=== PATIENT | male | born 1990 | race Caucasian/White ===

== ENCOUNTER 2020-07-28 20:26 | Emergency (ER) | payer MEDICAID, SELFPAY ==
[2020-07-28 20:26] VITALS: BP 136/86; PULSE 102; RESP 18; TEMP 36.6; O2SAT 96; BMI 28.5
--- NOTE | 2020-07-28 21:48 | ED_ITS ---
HPI - Wound/Laceration General: Chief Complaint: Wound/Laceration Stated Complaint: R EYE INJURY Time Seen by Provider: 07/28/20 21:11 Source: patient Mode of arrival: ambulatory Limitations: no limitations History of Present Illness: HPI narrative: 29-year-old male patient presents to the emergency department with right eyelid laceration. He states was riding [address] [place], watching for his dog behind him, ran into a barbed wire fence cutting his right eye. He states did not wreck the 4 [place], he denies loss of consciousness head injury or neck pain. He denies change of vision or eye pain. His states tried to cleanse the wound with soap and water but bleeding continued. Onset (ago): hour(s) (1) Place: home Patient tetanus UTD: No Associated symptoms: Reports no associated symptoms; Denies chills, fever(s), nausea or vomiting Treatments prior to arrival: bandage Review of Systems General: Reports: 10 or more systems reviewed and unremarkable except in HPI and below Const: Denies: fever(s), chills or diaphoresis Eyes: Denies: blurry vision or eye redness ENMT: Denies: throat pain, dental pain or disequilibrium Card: Denies: chest pain, palpitations or irregular heart rhythm Resp: Denies: dyspnea, productive cough, non-productive cough or wheezing GI: Denies: abdominal pain, nausea or vomiting : Denies: dysuria Musc: Denies: neck pain, back pain, joint pain or joint warmth Skin/Breast: Reports: skin pain and skin tenderness; Denies: rash, pruritus, non-healing lesions or acne Neuro: Denies: headache(s), weakness in extremities or behavioral changes Psych: Denies: anxiety or depression Lupillo/Lymph: Denies: easy bruising Physical Exam Const: COMMON NORMALS: no acute distress, average body habitus, patient oriented x3, healthy appearing, alert and well nourished GENERAL APPEARANCE: cooperative, comfortable, well kempt, well developed and well hydrated NUTRITIONAL APPEARANCE: thin ORIENTATION/CONSCIOUSNESS: Yes awake, Yes oriented to person, Yes oriented to place and Yes oriented to time HENMT: COMMON NORMALS: normocephalic, atraumatic, EAC's normal, TM's normal bilaterally, Normal external nose present, Normal nasal mucous membranes and turbinates present, moist oral mucous membranes, oropharynx normal and dentition normal HEAD & SCALP: normal to inspection, normocephalic and atraumatic FACE & SINUS: normal facial exam, sinuses nontender and face symmetric FACE & SINUS IMAGES: 1. 1.5 cm linear laceration, no active bleeding, not through the eyelid 2. superficial abrasion lateral to the laceration NOSE: Normal external nose present and Normal nasal mucous membranes and turbinates present EXTERNAL AUDITORY CANAL: EAC's normal TYMPANIC MEMBRANE: TM's normal bilaterally MOUTH: Normal oral and palatal mucosa present and tongue normal Eye: COMMON NORMALS: Equal, round and reactive pupils present, EOMs intact bilaterally and conjunctivae normal GENERAL EYE: appearance normal, both eyes and all related structures and normal light reflex VISUAL ACUITY: Yes acuity normal VISUAL [place]: No peripheral vision loss ALIGNMENT: Yes alignment normal PERIORBITAL: periorbital findings normal EYELID: eyelid abnormality right upper eyelid (laceration) CONJUNCTIVA: Yes conjunctivae normal SCLERA: sclerae normal CORNEA: Yes corneas normal PUPIL: Yes Equal, round and reactive pupils present DIRECT OPHTHALMOSCOPY: Yes normal light reflex Neck/C-Spine: COMMON NORMALS: full ROM and no lymphadenopathy GENERAL: Yes normal visual inspection and Yes trachea midline CERVICAL SPINE: Yes cervical ROM normal Lymph: LYMPHATIC: no lymphadenopathy noted Chest: COMMONS NORMALS: normal inspection of the chest Resp: COMMON NORMALS: normal respiratory effort and clear to auscultation bilaterally AUSCULTATION: clear to auscultation bilaterally Cardio: COMMON NORMALS: regular rhythm, S1 normal heart sound present and S2 normal heart sound present RHYTHM: regular rhythm HEART SOUNDS: S1 normal heart sound present and S2 normal heart sound present GI: COMMON NORMALS: Soft to palpation and non-tender INSPECTION: Yes normal to inspection PALPATION: Yes Soft to palpation : COMMON NORMALS: Yes no CVA tenderness BLADDER/KIDNEY EXAM: Yes no CVA tenderness Back/Pelvis: COMMON NORMALS: no CVA tenderness and thoracic and lumbar spine normal to inspection Extremity: COMMON NORMALS: normal to inspection and capillary refill normal Neuro: COMMON NORMALS: patient oriented x3 and no focal motor deficits SENSORIUM/ORIENTATION: Yes alert, Yes oriented to person, Yes oriented to place and Yes oriented to time Psych: COMMON NORMALS: mental status grossly normal, Normal thought process present and cooperative APPEARANCE: Yes well kempt ACTIVITY/MOTOR BEHAVIOR: Yes appropriate eye contact THOUGHT PROCESS: Normal thought process present Skin: COMMON NORMALS: no rashes or lesions noted and turgor normal GENERAL SKIN EXAM: no rashes or lesions noted and turgor normal Procedures Laceration Laceration 1: Site: scalp (rt eyelid - upper) Side (If applicable): right Size (cm): 1.5 Description: linear Depth: simple, single layer Local Anesthetic: lidocaine 1% Amount of anesthesia used (mL): 4 Pre-repair: wound explored, irrigated extensively, deep structures intact and extensive debridement Skin layer closed with: nylon Size (cm): 6-0 Number of sutures: 3 Technique: simple, interrupted Subcutaneous layer closed with: other (skin adhesive) Course Vital Signs: Vital signs: Vital Signs Temperature 97.9 F 07/28/20 20:26 Pulse Rate 102 H 07/28/20 20:26 Respiratory Rate 18 07/28/20 20:26 Blood Pressure 136/86 07/28/20 20:26 Pulse Oximetry 96 07/28/20 20:26 Discharge Plan Discharge Patient Disposition: Home Clinical Impression: Abrasion Eyelid laceration Qualifiers: Encounter type: initial encounter Laterality: right Qualified Code(s): S01.111A - Laceration without foreign body of right eyelid and periocular area, initial encounter Condition: Stable Discharge Orders: Discharge ED (Routine); Ordered 07/28/20 Ordered By: Josie Mascorro Referrals: oDnita Rios DO [Primary Care Provider] - Discharge Diet: Usual diet Discharge Activity: Resume usual activity Patient Instructions: Diphtheria/Acellular Pertussis/Tetanus Booster Vaccine (Tdap) (Injection), Suture Care (ED), Laceration (ED), Opioid Safety, Suture Care - Skin Glue Activity Restrictions/Additional Instructions: instructional support services director will contact you with a follow-up appointment with Dr. Riley, ophthalmology for next week Do not submerge the sutures do not rub sutures or irritate the sutures May gently cleanse with warm water, may apply triple antibiotic ointment to the wound once daily Avoid rubbing the eye or wound is irritation for suture injury can occur Return to the emergency department if you develop difficulty with vision, eye pain or difficulty seeing out of the right eye Coding Level of Care Code ED Grated Cheese Maker for Son Fwd Exam Comprehensive
[2020-07-28] MEDS: tetanus-dipt-pertussis 0.5 mL SDV IM (22:29)
[2020-07-28] MEDS: eye irrigation 30 mL Btl EYE-RIGHT (22:30)
[2020-07-28] MEDS: lidocaine 1% INJ 20 mL INJECTION (22:30)
[2020-07-28] MEDS: fluorescein 1 mg Strip EYE-RIGHT (22:30)
--- NOTE | 2020-07-28 22:31 | PC.NURSE ---
unable to scan meds or pt due to system downtime.
--- NOTE | 2020-08-02 10:17 | DCPLANNER ---
Addendum entered by Giulia Vargas 08/30/20 12:08: Patient had a follow up appointment scheduled for 08.03.[address] Riley - patient did attend appointment. Original Note: financial aid manager had message to schedule a follow up appointment for patient with Dr. Riley for suture removal. financial aid manager called the office of Dr. Riley, spoke with Laurel, gave clinic patients information. A followup appointment was scheduled for Monday, August 03, 2020 at 11:00 with Andrew. financial aid manager called patient, spoke with life partner, gave her the appointment information.
== END 2020-07-28 22:32 | disposition home or self-care (01) ==
PROVIDERS: Emergency Provider Nurse Practitioner Family; PCP Family Medicine
DX: S01.111A Laceration without foreign body of right eyelid and periocular area, initial encounter (principal); S00.81XA Abrasion of other part of head, initial encounter; V86.55XA Driver of 3- or 4- wheeled all-terrain vehicle (ATV) injured in nontraffic accident, initial encounter; Z23 Encounter for immunization
CPT/HCPCS: 12011; 90471; 90715; 99283

== ENCOUNTER 2020-11-25 18:55 | Emergency (ER) | payer MEDICAID, SELFPAY ==
[2020-11-25 19:24] VITALS: BP 118/72; PULSE 73; RESP 18; TEMP 36.7; O2SAT 98; BMI 26.4
--- NOTE | 2020-11-25 19:36 | ED_ITS ---
HPI - Wound/Laceration General: Chief Complaint: Wound/Laceration Stated Complaint: Rt Hand Cut Time Seen by Provider: 11/25/20 19:35 History of Present Illness: HPI narrative: Patient is a 29-year-old male comes to the ED with a cut on right hand. Patient says cut occurred 2 days ago when he cut the dorsal aspect of right hand on a metal dryer door. They immediately rinsed the cut with water and then cleaned it out with hydrogen peroxide. They have been keeping it covered with a Band-Aid for the past couple days as well. Patient was concerned about it possibly being infected. Patient is not up-to-date on his tetanus. Associated symptoms: Denies chills, fever(s), nausea or vomiting Review of Systems Const: Denies: fever(s), chills or fatigue Eyes: Denies: change in vision or eye discomfort ENMT: Denies: throat pain, odynophagia, nasal discharge or nasal congestion Card: Denies: chest pain, palpitations, edema, swelling of feet/ankles, dyspnea on exertion or orthopnea Resp: Denies: dyspnea, productive cough or non-productive cough GI: Denies: abdominal pain, nausea, vomiting, diarrhea, constipation or hematochezia : Denies: flank pain, difficulty urinating, dysuria or hematuria Musc: Denies: neck pain, back pain or extremity swelling Skin/Breast: Reports: new lesions (cut on right hand); Denies: rash Neuro: Denies: headache(s), numbness in extremities or weakness in extremities Physical Exam Const: COMMON NORMALS: no acute distress, patient oriented x3 and alert GENERAL APPEARANCE: cooperative and comfortable HENMT: COMMON NORMALS: normocephalic HEAD & SCALP: normocephalic MOUTH: Normal oral and palatal mucosa present THROAT: posterior oropharynx normal and uvula midline Neck/C-Spine: COMMON NORMALS: supple GENERAL: Yes normal visual inspection Resp: COMMON NORMALS: normal respiratory effort, No retractions, No use of accessory muscles and clear to auscultation bilaterally AUSCULTATION: clear to auscultation bilaterally Cardio: COMMON NORMALS: regular rate, regular rhythm, S1 normal heart sound present, S2 normal heart sound present, No gallops present (Cardio), No clicks present (Cardio), No murmurs present (Cardio) and Peripheral pulses 2+ throughout RATE: regular rate RHYTHM: regular rhythm HEART SOUNDS: S1 normal heart sound present and S2 normal heart sound present PERIPHERAL PULSES: Peripheral pulses 2+ throughout GI: COMMON NORMALS: Normal to inspection, nondistended, normoactive bowel sounds present, Soft to palpation, non-tender and no masses PALPATION: Yes Soft to palpation : COMMON NORMALS: Yes no CVA tenderness BLADDER/KIDNEY EXAM: Yes no CVA tenderness Back/Pelvis: COMMON NORMALS: no CVA tenderness Extremity: COMMON NORMALS: normal to inspection NARRATIVE EXTREMITY EXAM: Right hand?patient has a superficial laceration to dorsal aspect of hand. No signs of infection noted. Sutures not needed to close up laceration. Neuro: COMMON NORMALS: patient oriented x3 and moves all extremities SENSORIUM/ORIENTATION: Yes alert Skin: GENERAL SKIN EXAM: dry skin Course Vital Signs: Vital signs: Vital Signs Temperature 98.1 F 11/25/20 19:24 Pulse Rate 78 11/25/20 19:58 Respiratory Rate 16 11/25/20 19:58 Blood Pressure 118/72 11/25/20 19:24 Pulse Oximetry 99 11/25/20 19:58 MDM - Wound/Laceration MDM Narrative: Medical decision making narrative: Patient had a cut on his right hand that did not need any sutures and appears to be healing well with no signs of infection. Patient was given an updated tetanus. Triple antibiotic ointment was placed along with bandage over cat. Patient was discharged and told to follow-up with PCP in 7 to 10 days for reevaluation. Patient understood and agree with plan. Discharge Plan Discharge Patient Disposition: Home Clinical Impression: Cut of right hand Qualifiers: Encounter type: initial encounter Qualified Code(s): S61.411A - Laceration without foreign body of right hand, initial encounter Condition: Stable Prescriptions: New cephalexin 500 mg capsule 500 mg PO Q6H 4 Days Qty: 16 RF: 0 bacitracin zinc-polymyxin B 500-10,000 unit/gram ointment 1 applic topical DAILY Qty: 14.2 RF: 0 Discharge Orders: Discharge ED (Routine); Ordered 11/25/20 Ordered By: Edwardo Zapata Referrals: Donita Rios DO [Primary Care Provider] - Discharge Diet: Regular Discharge Activity: Resume usual activity Patient Instructions: Laceration (ED) Activity Restrictions/Additional Instructions: Follow-up with medical provider as directed in 7 to 10 days for reevaluation. Take medications as prescribed. Clean cotton on hand daily with soap and water and then apply triple antibiotic ointment or bacitracin on cut and bandage to keep it covered daily. Return to the ER or your medical provider if condition worsens. Please read and understand discharge instructions. Thank you for choosing [facility] for your healthcare needs today. Please realize this is an emergency room and that we are providing you with a medical screening exam and this may not be complete and all inclusive of all the testing and or work up that you may need to determine your ailment or severity of your illness. It is very important that you follow up as instructed or that you return to the Emergency Department should you have concerns or if your condition changes or worsens in any way. Coding Level of Care Code ED Telephone Cleaner for Son Pisano Exam Comprehensive
[2020-11-25] MEDS: neomycin-poly-bacitracin oint 0.9 gm Pkt 1 APPLIC TOPICAL (19:53)
[2020-11-25] MEDS: tetanus-dipt-pertussis 0.5 mL SDV IM (19:54)
[2020-11-25 19:58] VITALS: PULSE 78; RESP 16; O2SAT 99
== END 2020-11-25 20:00 | disposition home or self-care (01) ==
PROVIDERS: Emergency Provider Physician Assistant; PCP Family Medicine
DX: S61.411A Laceration without foreign body of right hand, initial encounter (principal); W26.8XXA Contact with other sharp object(s), not elsewhere classified, initial encounter
CPT/HCPCS: 90471; 90715; 99282

== ENCOUNTER 2022-07-03 18:24 | Emergency (ER) | payer MEDICAID, SELFPAY ==
[2022-07-03 18:25] VITALS: BP 138/82; PULSE 110; RESP 19; TEMP 36.7; O2SAT 98; BMI 26.4
--- NOTE | 2022-07-03 20:02 | ED_ITS ---
HPI - Animal Bite General: Chief Complaint: Animal Bite Stated Complaint: left leg possible spider bite Time Seen by Provider: 07/03/22 20:02 History of Present Illness: 31-year-old male patient comes in for tenderness and redness to the area to the left thigh. Patient believes he might have a spider bite that has gotten infected. Patient reports that he noticed the area about 3 days ago which has then become increasing red and swollen. Palpation of the lesion is hard without any fluctuance. Central crusted lesion is noted to the area of redness. Associated symptoms: Deny fever(s) Review of Systems Const: Denies: fever(s) Card: Denies: chest pain Resp: Denies: dyspnea GI: Denies: nausea or vomiting Musc: Denies: neck pain Skin/Breast: Reports: erythema and new lesions [facility] ED PFSH: Social History Smoking and tobacco status: never smoked Physical Exam Const: COMMON NORMALS: alert HENMT: COMMON NORMALS: normocephalic HEAD & SCALP: normocephalic Neck/C-Spine: COMMON NORMALS: full ROM Resp: COMMON NORMALS: normal respiratory effort and clear to auscultation bilaterally AUSCULTATION: clear to auscultation bilaterally Cardio: COMMON NORMALS: regular rate and regular rhythm RATE: regular rate RHYTHM: regular rhythm GI: COMMON NORMALS: non-tender Back/Pelvis: COMMON NORMALS: thoracic and lumbar spine normal to inspection Extremity: RIGHT LOWER EXTREMITY: Yes upper leg (Right inner thigh area of redness approximately 6 cm with central crusted l) Right upper leg: Yes inspection, Yes palpation and Yes neurovascular exam Neuro: SENSORIUM/ORIENTATION: Yes alert Skin: LESIONS: lesion noted (Right inner thigh, surrounding erythema 6 cm) Course Vital Signs: Vital signs: Vital Signs Temperature 98.1 F 07/03/22 18:25 Pulse Rate 110 H 07/03/22 18:25 Respiratory Rate 19 H 07/03/22 18:25 Blood Pressure 138/82 07/03/22 18:25 Pulse Oximetry 98 07/03/22 18:25 Oxygen Delivery Me thod 07/03/22 18:25 MDM - Animal Bite Medical Decision Making 31-year-old male patient comes in with a area of redness with a central crusted lesion to the right inner thigh. No palpable fluctuance is noted to the wound. Induration of the tissue is noted surrounding the wound. Differential diagnosis includes but not limited to infected insect bite, infected hair follicle, staph infection, local reaction to insect bite, cellulitis. Believe the patient has an infected hair follicle versus infected insect bite. Recommended antibiotic Sulfatrim 1 tablet 2 times a day for the next 10 days. Recommend triple antibiotic to the crusted lesion. Patient reported understanding of care plan need for follow-up or return to the ER for worsening symptoms. Discharge Plan Discharge Patient Disposition: Home Clinical Impression: Hair follicle infection Condition: Stable Prescriptions: New sulfamethoxazole-trimethoprim 800-160 mg tablet 1 tab PO BID 10 Days Qty: 20 0RF No Action lidocaine (PF) 20 mg/mL (2 %) solution 20 mg SUBCUT ONCE Qty: 5 0RF triamcinolone acetonide 0.5 % cream 1 applic topical DAILY Qty: 15 0RF Discharge Orders: Discharge ED (Routine); Ordered 07/03/22 Ordered By: Micha Wilkins Referrals: Donita Rios DO [Primary Care Provider] - Discharge Diet: Usual diet Discharge Activity: Increase activity as tolerated Patient Instructions: Folliculitis (ED) Activity Restrictions/Additional Instructions: Warm moist pack to the area. Do not pick at the wound. Use triple antibiotic ointment twice daily to the crusted lesions. Do not share towels. Take oral antibiotic 1 tablet twice a day for the next 10 days. Follow-up with primary care in 3 to 5 days for recheck. Return to ED for worsening symptoms such as high fever greater than 100.4, increasing redness and swelling to the extremity, and inability to hold fluids down. Coding Level of Care Code ED Storm Sash Maker for Son Pisano
[2022-07-03] MEDS: sulfamethoxazole-trimeth DS 160-800 mg Tablet 1 TAB PO (20:21)
== END 2022-07-03 20:22 | disposition home or self-care (01) ==
PROVIDERS: Emergency Provider Nurse Practitioner Family; PCP Family Medicine
DX: L08.9 Local infection of the skin and subcutaneous tissue, unspecified (principal)
CPT/HCPCS: 99283

== ENCOUNTER → 2024-06-03 08:18 | Outpatient (BNVA) | payer MEDICAID, SELFPAY | PROVIDERS: PCP Family Medicine; Visit Provider Emergency Medicine | DX: J02.9 Acute pharyngitis, unspecified (principal) | CPT/HCPCS: 87071; 87880 ==

== ENCOUNTER 2024-12-21 22:43 | Emergency (ER) | payer SELFPAY ==
[2024-12-21 22:49] VITALS: BP 126/73; PULSE 82; RESP 14; TEMP 36.6; O2SAT 96
--- NOTE | 2024-12-22 00:18 | XRR_ITS ---
PROCEDURE INFORMATION: Exam: XR Chest Exam date and time: 12/22/2024 12:22 AM Age: 34 years old Clinical indication: Shortness of breath; Additional info: Short of breath TECHNIQUE: Imaging protocol: Radiologic exam of the chest. Views: 1 view. COMPARISON: No relevant prior studies available. FINDINGS: Lungs: Unremarkable. No consolidation. Pleural spaces: Unremarkable. No pleural effusion. No pneumothorax. Heart/Mediastinum: Unremarkable. No cardiomegaly. Bones/joints: Unremarkable. XR/XR chest 1V portable [id number] IMPRESSION: No acute findings.
--- NOTE | 2024-12-22 00:18 | W.ED.URI ---
HPI - URI/Sore Throat General: Chief Complaint: Upper Respiratory Infection Stated Complaint: rt index finger lac and productive cough Time Seen by Provider: 12/21/24 23:55 History of Present Illness: Patient is 34-year-old gentleman that was working on a engine, and has a sliced across the distal left index finger. This was bleeding excessively earlier today. This occurred approximately 6-8 hours ago. No fat is out. There is no weakness in this finger. Patient also complains of green sputum, cough without fever x 1 week. His had the same symptoms and was diagnosed with bronchitis. Associated symptoms: Deny abdominal pain, chills, chest pain, fever(s), headache(s), nausea or vomiting Related Data Previous Rx's ?Medication ?Instructions ?Recorded dexamethasone 2 mg tablet 10 mg (5 x 2 mg) PO DAILY 1 day #5 06/03/24 tabs fexofenadine 60 mg-pseudoephedrine 1 tab PO Q12H PRN sinus symptoms 06/03/24 ER 120 mg tablet,ext.release,12 hr 14 days #30 tabs (Tosin-D 12 Hour) amoxicillin 500 mg tablet 500 mg PO BID 10 days #20 tabs 06/09/24 doxycycline hyclate 100 mg capsule 100 mg PO BID 10 days #20 caps 12/22/24 methylprednisolone 4 mg tablets in See Rx Instructions PO .COMPLEX 12/22/24 a dose pack (Medrol (Oneil)) #21 ea Allergies Allergy/AdvReac Type Severity Reaction Status Date / Time No Known Allergies Allergy Verified 12/21/24 22:52 Review of Systems General: Reports: 10 or more systems reviewed and unremarkable except in HPI and below Const: Denies: fever(s) or chills Eyes: Denies: change in vision or blurry vision ENMT: Denies: throat pain or mouth pain Card: Denies: chest pain or palpitations Resp: Reports: dyspnea and productive cough GI: Denies: abdominal pain, nausea or vomiting : Denies: flank pain or difficulty urinating Musc: Reports: extremity pain and joint pain; Denies: neck pain or back pain Skin/Breast: Denies: rash or pruritus Neuro: Denies: headache(s), numbness in extremities or weakness in extremities Psych: Denies: anxiety or depression PFSH ED PFSH: Social History Smoking and tobacco/nicotine status: current every day tobacco/nicotine user Physical Exam Const: COMMON NORMALS: no acute distress, average body habitus, patient oriented x3 and no limitations GENERAL APPEARANCE: cooperative and comfortable HENMT: COMMON NORMALS: normocephalic and atraumatic HEAD & SCALP: normocephalic and atraumatic Neck/C-Spine: COMMON NORMALS: full ROM, no lymphadenopathy and supple Lymph: LYMPHATIC: no lymphadenopathy noted Chest: COMMONS NORMALS: normal inspection of the chest Resp: COMMON NORMALS: normal respiratory effort and No retractions AUSCULTATION: rhonchi (LL coarseness bilaterally) and bronchial breath sounds Cardio: COMMON NORMALS: regular rate and regular rhythm RATE: regular rate RHYTHM: regular rhythm GI: COMMON NORMALS: Normal to inspection, nondistended, normoactive bowel sounds present : COMMON NORMALS: Yes no CVA tenderness BLADDER/KIDNEY EXAM: Yes no CVA tenderness Back/Pelvis: COMMON NORMALS: no CVA tenderness Extremity: LEFT UPPER EXTREMITY: Yes hand & digits Left hand and digits: Yes inspection (index finger with semi round incision, superficial) and Yes tendon exam (intact strength/abduction and adduction) OTHER: This area was cleaned with saline, Betadine, and Steri-Strips x 3. This is not amicable to laceration repair. Neuro: COMMON NORMALS: patient oriented x3 Psych: COMMON NORMALS: cooperative and normal affect Skin: COMMON NORMALS: no rashes or lesions noted and no wounds GENERAL SKIN EXAM: no rashes or lesions noted Course Vital Signs: Vital signs: Vital Signs Temperature 97.8 F 12/21/24 22:49 Pulse Rate 82 12/21/24 22:49 Respiratory Rate 14 12/21/24 22:49 Blood Pressure 126/73 12/21/24 22:49 Pulse Oximetry 96 12/21/24 22:49 MDM - URI/Sore Throat Medical Decision Making Patient is 34-year-old gentleman that comes to the ED with left index dorsal finger with linear curved laceration. This is more superficial in nature and does not require sutures. The area was cleaned, Betadine, and Steri-Strips were placed. Tolerated without issues. As far as his cough, green sputum production, chest x-ray was ordered. He will be treated appropriately after results. Patient was behind on his tetanus and this was ordered as well. XR interpretation done by ED provider, pending radiology final review ED provider radiology interpretation(s): negative Discharge Plan Discharge Patient Disposition: Home Clinical Impression: Bronchitis Superficial laceration of left hand Qualifiers: Encounter type: initial encounter Qualified Code(s): S61.412A - Laceration without foreign body of left hand, initial encounter Condition: Stable Prescriptions: New doxycycline hyclate 100 mg capsule 100 mg PO BID 10 Days Qty: 20 0RF methylprednisolone [Medrol (Oneil)] 4 mg tablets,dose pack See Rx Instructions .ROUTE .COMPLEX Qty: 21 0RF Rx Instructions: for 6 days No Action lidocaine (PF) 20 mg/mL (2 %) solution 20 mg SUBCUT ONCE Qty: 5 0RF fexofenadine-pseudoephedrine [Tosin-D 12 Hour] 60-120 mg tablet extended release 12 hr 1 tab PO Q12H PRN (Reason: sinus symptoms) 14 Days Qty: 30 0RF dexamethasone 2 mg tablet 10 mg PO DAILY 1 Days Qty: 5 0RF Rx Instructions: take all at same time today amoxicillin 500 mg tablet 500 mg PO BID 10 Days Qty: 20 0RF Discharge Orders: Discharge ED (Routine); Ordered 12/22/24 Ordered By: Concepción Cramer Referrals: Donita Rios DO [Primary Care Provider, Family Practice] Discharge Diet: Usual diet Discharge Activity: Resume usual activity Patient Instructions: Laceration (ED), Acute Bronchitis (ED), Patient Portal & Loli Instructions Activity Restrictions/Additional Instructions: Clean your finger daily with antibacterial soap. Topical Vaseline or antibiotic ointment may be utilized. Replace Steri-Strips as needed. You will need to follow-up with your primary care physician regarding today's visit. Please call them for an appointment. Return to ED for worsening symptoms, temperature greater than 100.4 ?F Print Language: Moroccan Coding Level of Care Code ED Boilermaking Supervisor for Son Pisano
[2024-12-22] MEDS: tetanus-dipt-pertussis 0.5 mL SDV IM (00:30)
== END 2024-12-22 00:39 | disposition home or self-care (01) ==
PROVIDERS: Emergency Provider Physician Assistant; PCP Family Medicine
DX: S61.210A Laceration without foreign body of right index finger without damage to nail, initial encounter (principal); J40 Bronchitis, not specified as acute or chronic; Z72.0 Tobacco use; X58.XXXA Exposure to other specified factors, initial encounter
CPT/HCPCS: 71045; 90471; 90715; 99283; J7512; J9999